=== PATIENT | male | born 1965 | race African-American/Black ===

== ENCOUNTER 2024-01-06 22:11 | Emergency (ER) | payer OTHER, MEDICAID ==
[~2024-01-06] VITALS: Ht 170.2 cm; Wt 78.0 kg
[~2024-01-06 22:11] MED LIST: BICT1TAB3; LISI-186 PO; VITAMIN D
[2024-01-06 22:20] VITALS: O2SAT 98
[2024-01-07] MEDS: IBUPROFEN 600MG TABLET PO ONE (01:30)
[2024-01-07] MEDS: TETANUS, DIPHTHERIA, PERTUSSIS VAC/PF 0.5ML (>10YR OLD) IM ONE (01:30)
[2024-01-07] MEDS: LIDOCAINE HCL/PF 1% 10 MG/ML 5ML VIAL INFIL ONE (01:30)
[2024-01-07] MEDS: BACITRACIN ZINC OINT UDPKT TOP ONE (01:30)
[2024-01-07 03:00] VITALS: BP 127/68; PULSE 85; RESP 20; TEMP 36.72516; O2SAT 100
== END 2024-01-07 03:15 | disposition home or self-care (01) ==
LOC: ER 22:11
DX: S61.211A Laceration without foreign body of left index finger without damage to nail, initial encounter (principal); X58.XXXA Exposure to other specified factors, initial encounter; Y93.89 Activity, other specified; Y92.89 Other specified places as the place of occurrence of the external cause; Y99.8 Other external cause status
CPT/HCPCS: 99283; 90715; 12001; 90471; J3490; Z7610 ×3